=== PATIENT | female | born 1975 | race Caucasian/White ===

== ENCOUNTER → 2018-10-20 | Outpatient (CLI) | payer BC ==
--- NOTE | 2018-10-20 10:19 | PCVCIMAG ---
APPROVED REPORT Study performed: 10/20/2018 09:22:29 EXAM: Comprehensive 2D, Doppler, and color-flow Echocardiogram Patient Location: Echo lab Status: routine BSA: 2.19 Rhythm: NSR Other Information Study Quality: Good Risk Factors: Cardiac Risk Factors: Hyperlipidemia, Smoking Indications Syncope Hypertension/HDD Seizures 2D Dimensions IVSd: 16.70 (7-11mm)LVOT Diam: 19.53 (18-24mm) LVDd: 46.51 mm PWd: 11.97 (7-11mm)Ascending Ao: 30.85 (22-36mm) LVDs: 32.35 (25-40mm) Left Atrium: 39.74 (27-40mm) Aortic Root: 28.79 mm LV Single Plane 4CH: 61.47 % LV Single Plane 2CH: 69.40 % Biplane EF: 65.9 % Volumes Left Atrial Volume (Systole) Single Plane 4CH: 41.54 mLSingle Plane 2CH: 64.26 mL LA ESV Index: 24.00 mL/m2 Aortic Valve AoV Peak Geoff.: 1.49 m/s AO Peak Gr.: 8.82 mmHgLVOT Max P.92 mmHg LVOT Max V: 1.11 m/s DYLON Vmax: 2.24 cm2 Mitral Valve E/A Ratio: 1.1 MV Decel. Time: 241.52 ms MV E Max Geoff.: 0.72 m/s MV A Geoff.: 0.68 m/s TDI E/Lateral E': 5.54E/Medial E': 10.29 Medial E' Geoff.: 0.07 m/s Lateral E' Geoff.: 0.13 m/s Pulmonary Valve PV Peak Gr.: 2.80 mmHg Pulmonary Vein P Vein S: 0.61 m/sP Vein A: 0.37 m/s P Vein D: 0.46 m/sP Vein A Dur.: 65.7 msec P Vein S/D Ratio: 1.33 Left Ventricle The left ventricle is normal size. There is normal LV segmental wall motion. Mild concentric left ventricular hypertrophy. Left ventricular systolic function is normal. The left ventricular ejection fraction is within the normal range. LVEF is 60-65%. The left ventricular diastolic function is normal. Right Ventricle The right ventricle is normal size. The right ventricular systolic function is normal. Atria The left atrium size is normal. The right atrium size is normal. Aortic Valve The aortic valve is normal in structure. No aortic regurgitation is present. There is no aortic valvular stenosis. Mitral Valve The mitral valve is normal in structure. There is no mitral valve regurgitation noted. No evidence of mitral valve stenosis. Tricuspid Valve The tricuspid valve is normal in structure. Trace tricuspid regurgitation. Pulmonic Valve The pulmonary valve is normal in structure. There is no pulmonic valvular regurgitation. Great Vessels The aortic root is normal in size. IVC is normal in size and collapses >50% with inspiration. Pericardium There is no pericardial effusion. <Conclusion> The left ventricle is normal size. LVEF is 60-65%. The aortic valve is normal in structure. The mitral valve is normal in structure. The tricuspid valve is normal in structure. Trace tricuspid regurgitation. The pulmonary valve is normal in structure. There is no pericardial effusion.
== END | disposition home or self-care (01) ==
LOC: PCVCIMAG 09:44
PROVIDERS: ATTEND Internal Medicine
DX: I10 Essential (primary) hypertension (principal); R55 Syncope and collapse; R56.9 Unspecified convulsions
CPT/HCPCS: 93306